=== PATIENT | female | born 2000 | race Two or more races ===

== ENCOUNTER 2020-09-16 18:49 | Emergency (ER) | payer MEDICAID, OTHER ==
[~2020-09-16] VITALS: Ht 162.6 cm; Wt 90.7 kg
[2020-09-16 18:52] VITALS: BP 132/88
== END 2020-09-16 20:52 | disposition left against medical advice (07) ==
LOC: ER 18:53
DX: M25.561 Pain in right knee (principal); M25.562 Pain in left knee; Z53.21 Procedure and treatment not carried out due to patient leaving prior to being seen by health care provider